=== PATIENT | male | born 2000 | race Caucasian/White ===

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

== ENCOUNTER 2023-11-08 13:39 | Emergency (ER) | payer MEDICAID ==
[2023-11-08 13:52] VITALS: TEMP 98.4
[2023-11-08 14:28] LABS: Absolute Neutrophil Ct (ANC) 7.96 x10^3/uL (1.4-6.9); BASOPHIL % 0.4 % (0.0-0.4); Basophil (Absolute #) 0.04 x10^3/uL (0-0.4); Eosinophil % 1.1 % (0.00-5.0); Eosinophil (Absolute #) 0.11 x10^3/uL (0-0.5); Hematocrit 46.3 % (42-50); Hemoglobin 15.7 g/dL (12.5-18.0); IMMATURE GRAN # 0.04 x10^3u/L (0.00-0.03); IMMATURE GRAN % 0.4 % (0.00-0.4); Lymphocyte (Absolute #) 1.54 x10^3/uL (1.0-4.6); Lymphocytes % 14.8 % (24.0-44.0); Mean Cell Volume 81.4 fL (78-100); Mean Corpuscular Hemoglobin 27.6 pg (26-32); Mean Corpuscular Hgb Concent. 33.9 g/dL (32-36); Mean Platelet Volume 8.7 fL (7.5-11.0); Monocyte (Absolute #) 0.73 x10^3/uL (0.0-1.3); Neutrophil % 76.3 % (36.0-66.0); Platelet Count 308 x10^3/uL (150-450); Red Blood Count 5.69 x10^6/uL (4.1-5.6); Red Cell Distribution Width 12.8 % (11.5-14.0); White Blood Count 10.4 x10^3/uL (4.0-10.5)
[2023-11-08 14:40] LABS: ALBUMIN 4.3 g/dL (3.5-5.0); ANION GAP 13.3 MEQ/L (5-15); BILIRUBIN,TOTAL 1.8 mg/dL (0.2-1.3); Calcium 9.2 mg/dL (8.4-10.2); Creatinine 1 0.9 mg/dL (0.66-1.25); EST GLOMERULAR FILTRATION RATE 124.6 ML/MIN; Potassium 3.4 mmol/L (3.5-5.1); Total Protein 7.5 g/dL (6.3-8.2)
[2023-11-08 14:42] LABS: INR 0.97 (0.8-3.0); PROTIME 10.6 SECONDS (9.4-12.5); PTT 26.6 SECONDS (25.1-36.5)
--- NOTE | 2023-11-08 15:01 | ERPHSYRPT ---
- History of Present Illness Time Seen by Provider: 11/08/23 13:55 Source: patient Exam Limitations: no limitations Patient Subjective Stated Complaint: pt sent here from Dr. Rodriguez office for DVT to right lower leg. After US pt co sob,tingling after finding out he had a DVT. pt OCL was taken off in office. pt co to nurse was lower right leg pain and tenderness. deneis cough or fever. Triage Nursing Assessment: pt alert, arrived per wc, resp easy, no cough, skin w/d/p. non wieght bearing to right leg. edema not lower right leg. no bruising. Physician History: 23-year-old morbidly obese male with a recent right ankle fracture was placed in a splint, was seen at podiatry office and was complaining of increasing pain in the calf area, has ultrasound done which showed occlusive posterior tibial DVT. As soon as patient finds out the results he started to have panicking with tingling in the fingertips, feeling palpitations and shortness of breath. Patient is sent in ER for further evaluation. He denies any difficulty breathing, chest pain or palpitation currently. No numbness in the fingers. No bluish discoloration of the toes. Has painful movements at the ankle. No history of PE or DVT in the past. Denies any contraindications to anticoagulation. Allergies/Adverse Reactions: No Known Drug Allergies Allergy (Verified 11/08/23 13:49) Home Medications: Hydrocodone/Acetaminophen [Hydrocodone-Acetamin 5-325 mg] 1 ea .ROUTE QID 11/08/23 [History] Hx Tetanus, Diphtheria Vaccination/Date Given: No Hx Influenza Vaccination/Date Given: No Hx Pneumococcal Vaccination/Date Given: No Immunizations Up to Date: Yes Travel Risk - International Travel Have you traveled outside of the country in past 3 weeks: No - Emerging Infectious Disease Are you exhibiting symptoms associated with any current EIDs: No - Review of Systems Constitutional: No Symptoms Eyes: No Symptoms Ears, Nose, & Throat: No Symptoms Respiratory: No Symptoms Cardiac: No Symptoms Abdominal/Gastrointestinal: No Symptoms Genitourinary Symptoms: No Symptoms Musculoskeletal: Injury Skin: No Symptoms Neurological: No Symptoms Psychological: Anxiety Endocrine: No Symptoms Hematologic/Lymphatic: No Symptoms - Past Medical History Pertinent Past Medical History: No Neurological History: No Pertinent History ENT History: No Pertinent History Cardiac History: No Pertinent History Respiratory History: No Pertinent History Endocrine Medical History: No Pertinent History Musculoskeletal History: No Pertinent History GI Medical History: No Pertinent History History: No Pertinent History Psycho-Social History: Depression Male Reproductive Disorders: No Pertinent History - Past Surgical History Past Surgical History: Yes Neuro Surgical History: No Pertinent History Cardiac: No Pertinent History Respiratory: No Pertinent History Gastrointestinal: No Pertinent History Genitourinary: No Pertinent History Musculoskeletal: No Pertinent History Male Surgical History: No Pertinent History Other Surgical History: repair of laceration - Social History Smoking Status: Current every day smoker Exposure to second hand smoke: Yes Drug Use: none Patient Lives Alone: No - Nursing Vital Signs Nursing Vital Signs: Initial Vital Signs Temperature 98.4 F 11/08/23 13:52 Pulse Rate 62 11/08/23 13:52 Respiratory Rate 18 11/08/23 13:52 Blood Pressure 158/117 11/08/23 13:52 O2 Sat by Pulse Oximetry 98 11/08/23 13:52 Pain Scale Pain Intensity 2 - Physical Exam General Appearance: no apparent distress, alert Eye Exam: PERRL/EOMI Ears, Nose, Throat Exam: normal ENT inspection Neck Exam: normal inspection, non-tender, supple, full range of motion Respiratory Exam: normal breath sounds, lungs clear Cardiovascular Exam: regular rate/rhythm, normal heart sounds Gastrointestinal/Abdomen Exam: soft Extremity Exam: other (Tenderness right lateral ankle with some swelling around. Positive calf tenderness on the right. Distal neurovascular well intact. Soft compartments.) Neurologic Exam: alert, oriented x 3, cooperative Skin Exam: normal color SpO2 Interpretation: normal SpO2: 98 O2 Delivery: Room Air Ordered Tests: Active Orders 24 hr Category Date Time Status CHEST WITH CONTRAST [CT] Stat Exams 11/08/23 15:07 Completed CBC W DIFF Stat Lab 11/08/23 14:27 Completed CMP Stat Lab 11/08/23 14:27 Completed PROTIME WITH INR Stat Lab 11/08/23 14:27 Completed PTT Stat Lab 11/08/23 14:27 Completed TROPONIN Q4H Lab 11/08/23 15:15 Ordered TROPONIN Q4H Lab 11/08/23 19:15 Ordered TROPONIN Q4H Lab 11/08/23 23:15 Ordered Medication Summary Discontinued Medications Generic Name Dose Route Start Last Admin Trade Name Freq PRN Reason Stop Dose Admin Apixaban 10 mg 11/08/23 16:52 11/08/23 17:13 Apixaban 2.5 Mg Tablet PO 11/08/23 16:53 10 mg ONCE STA Administration Morphine Sulfate 4 mg 11/08/23 15:20 11/08/23 15:26 Morphine Sulfate 4 Mg/Ml Injection IV 11/08/23 15:21 4 mg STAT ONE Administration Morphine Sulfate Confirm 11/08/23 15:23 Morphine Sulfate 4 Mg/Ml Injection Administered 11/08/23 15:24 Dose 4 mg .ROUTE .STK-MED ONE Ondansetron HCl 4 mg 11/08/23 15:20 11/08/23 15:26 Ondansetron Hcl 4 Mg/2 Ml Vial IV 11/08/23 15:21 4 mg STAT ONE Administration Ondansetron HCl Confirm 11/08/23 15:22 Ondansetron Hcl 4 Mg/2 Ml Vial Administered 11/08/23 15:23 Dose 4 mg .ROUTE .STK-MED ONE Lab/Rad Data: Laboratory Result Diagrams 11/08/23 14:27 11/08/23 14:27 Laboratory Results 11/08/23 11/08/23 11/08/23 Range/Units 14:27 14:27 14:27 WBC 10.4 (4.0-10.5) x10^3/uL RBC 5.69 H (4.1-5.6) x10^6/uL Hgb 15.7 (12.5-18.0) g/dL Hct 46.3 (42-50) % MCV 81.4 (78-100) fL MCH 27.6 (26-32) pg MCHC 33.9 (32-36) g/dL RDW 12.8 (11.5-14.0) % Plt Count 308 (150-450) x10^3/uL MPV 8.7 (7.5-11.0) fL Gran % 76.3 H (36.0-66.0) % Immature Gran % (Auto) 0.4 (0.00-0.4) % Nucleat RBC Rel Count 0.0 (0.00-0.1) % Eos # (Auto) 0.11 (0-0.5) x10^3/uL Immature Gran # (Auto) 0.04 H (0.00-0.03) x10^3u/L Absolute Lymphs (auto) 1.54 (1.0-4.6) x10^3/uL Absolute Monos (auto) 0.73 (0.0-1.3) x10^3/uL Absolute Nucleated RBC 0.00 (0.00-0.01) x10^3u/L Lymphocytes % 14.8 L (24.0-44.0) % Monocytes % 7.0 (0.0-12.0) % Eosinophils % 1.1 (0.00-5.0) % Basophils % 0.4 (0.0-0.4) % Absolute Granulocytes 7.96 H (1.4-6.9) x10^3/uL Basophils # 0.04 (0-0.4) x10^3/uL PT 10.6 (9.4-12.5) SECONDS INR 0.97 (0.8-3.0) APTT 26.6 (25.1-36.5) SECONDS Sodium 139 (135-145) mmol/L Potassium 3.4 L (3.5-5.1) mmol/L Chloride 105 (98-107) mmol/L Carbon Dioxide 25 (22-30) mmol/L Anion Gap 13.3 (5-15) MEQ/L BUN 7 L (9-20) mg/dL Creatinine 0.90 (0.66-1.25) mg/dL Estimated GFR 124.6 ML/MIN Glucose 103 (74-106) mg/dL Calcium 9.2 (8.4-10.2) mg/dL Total Bilirubin 1.80 H (0.2-1.3) mg/dL AST 26 (17-59) U/L ALT 35 (0-50) U/L Alkaline Phosphatase 66 (38-126) U/L Serum Total Protein 7.5 (6.3-8.2) g/dL Albumin 4.3 (3.5-5.0) g/dL - Progress Progress: improved Progress Note: 11/08/23 17:03 23-year-old is evaluated in the ER for symptoms of increasing pain in the right calf with a positive DVT scan. Patient was anxious immediately afterwards. During my evaluation is back to normal. No difficulty breathing. No palpitations. Room air oxygen in upper 90s. No tachypnea or tachycardia. Baseline workup is fairly unremarkable with normal white count and hemoglobin, fairly unremarkable chemistries. Negative troponin. Negative CTA chest for PE or any other acute findings. EKG is normal sinus with no acute ischemic changes. I would start him on Eliquis and have him outpatient follow-up with his primary care with referral to hematology oncology. Podiatry has seen patient in the ER and has resplinted. Counseled pt/family regarding: lab results, diagnosis, need for follow-up, rad results Medical Desision Making - Discussion of managment Care discussed with:: specialist (Podiatry Dr. Alejo) Reviewed:: Test results Agreed on:: Treatment plan Will see patient: In office - Diagnostic Testing Diagnostic test were ordered, analyzed, and reviewed by me: Yes Radiological Interpretation: Reviewed by me - Risk of complications The pt has a mod risk of morbidity or mortality based on: Need for prescription drug management - Departure Departure Disposition: Home Clinical Impression: DVT (deep venous thrombosis) Condition: Stable Critical Care Time: No Referrals: FARRAH IZAGUIRRE MD [Primary Care Provider] - Follow up with PCP 1 day Instructions: Deep Vein Thrombosis (Blood Clots in the Legs) (DC) Additional Instructions: Take pain medications as needed. Continue with Eliquis 10 mg twice a day for 7 days and then 5 mg twice a day from 8-day onward. Follow-up with primary care and hematology for reevaluation and further workup to find out the cause of blood clot in your leg. Return to ER for chest pain palpitations, shortness of breath, increasing pain or swelling in the leg etc.APt November 12 at 1pm with Prescriptions: Apixaban [Eliquis] 5 mg PO BID 30 Days #74 tab
[2023-11-08] MEDS ORDERED: Zofran 4 MG/2 ML VIAL ONE (15:22)
[2023-11-08] MEDS ORDERED: MORPHINE SULFATE 4 MG INJ ONE (15:23)
[2023-11-08] MEDS: Zofran 4 MG/2 ML VIAL IV ONE (15:26)
[2023-11-08] MEDS: MORPHINE SULFATE 4 MG INJ IV ONE (15:26)
--- NOTE | 2023-11-08 16:30 | XRAY ---
Indication: Short of breath. DVT. Multiple contiguous axial images obtained through the chest using 80 cc Isovue 370 contrast and PE protocol. Comparison: None Good opacification pulmonary arteries to include lobar and segmental branches. No pulmonary embolus. Heart not enlarged. Aorta normal in course and caliber. Small and large subcarinal and right hilar calcified nodes. No pathologic mediastinal/hilar lymphadenopathy. Lungs inflated with 2 small peripheral right lower lobe calcified granulomas. No suspicious pulmonary mass/nodule, infiltrate, or effusion. Bony thorax intact. Limited upper abdomen unremarkable. Impression: Negative pulmonary embolus. No acute cardiopulmonary abnormalities. Incidental old granulomatous disease.
[2023-11-08 16:58] VITALS: O2SAT 98
[2023-11-08] MEDS: ELIQUIS 2.5 MG TABLET PO STA (17:13)
[2023-11-08 17:33] VITALS: BP 132/82; PULSE 60; RESP 14
== END 2023-11-08 17:33 | disposition home or self-care (01) ==
LOC: ED 13:39
DX: I82.401 Acute embolism and thrombosis of unspecified deep veins of right lower extremity (principal); R06.02 Shortness of breath; F17.200 Nicotine dependence, unspecified, uncomplicated; F41.9 Anxiety disorder, unspecified
CPT/HCPCS: 36415; 71260; 80053; 84484; 85025; 85610; 85730; 96374; 96375; 99284; J2270; J2405; A9270-GY

== ENCOUNTER 2023-11-15 11:00 | Day surgery (SDC) | payer MEDICAID ==
[2023-11-15] MEDS ORDERED: Pepcid 20 MG VIAL IV ONE ×2 (11:19→11:23)
[2023-11-15] MEDS ORDERED: Decadron 4 MG ONE (11:23)
[2023-11-15] MEDS ORDERED: Transderm Scop 1.5MG Patch ONE (11:23)
[2023-11-15] MEDS ORDERED: TYLENOL EXTRA STRENGTH 500 MG ONE (11:23)
[2023-11-15] MEDS ORDERED: NEURONTIN ONE (11:24)
[2023-11-15] MEDS ORDERED: Lactated Ringers 1,000 ML IV ONE (11:24)
[2023-11-15] MEDS: Lactated Ringers 1,000 ML IV SCH (11:26)
[2023-11-15] MEDS: Decadron 4 MG PO ONE (11:26)
[2023-11-15] MEDS: NEURONTIN PO ONE (11:27)
[2023-11-15] MEDS: TYLENOL EXTRA STRENGTH 500 MG PO ONE (11:27)
[2023-11-15] MEDS: Transderm Scop 1.5MG Patch TOP PRN (11:27)
[2023-11-15] MEDS: Pepcid 20 MG VIAL IV ONE (11:32)
[2023-11-15 11:45] LABS: Hematocrit 45.9 % (42-50); Hemoglobin 15.6 g/dL (12.5-18.0); Mean Cell Volume 81.1 fL (78-100); Mean Corpuscular Hemoglobin 27.6 pg (26-32); Mean Platelet Volume 8.3 fL (7.5-11.0); Platelet Count 337 x10^3/uL (150-450); Red Blood Count 5.66 x10^6/uL (4.1-5.6); Red Cell Distribution Width 12.9 % (11.5-14.0); White Blood Count 7.4 x10^3/uL (4.0-10.5)
[2023-11-15 12:00] LABS: ALBUMIN 4.4 g/dL (3.5-5.0); ANION GAP 12.5 MEQ/L (5-15); BILIRUBIN,TOTAL 1.5 mg/dL (0.2-1.3); Calcium 9.3 mg/dL (8.4-10.2); Creatinine 1 0.8 mg/dL (0.66-1.25); EST GLOMERULAR FILTRATION RATE 129.1 ML/MIN; Potassium 4.1 mmol/L (3.5-5.1); Total Protein 7.7 g/dL (6.3-8.2)
[2023-11-15] MEDS: KEFZOL 1 GM** 3 G in Sodium Chloride 0.9% 50 ML 50 ML IV SCH (12:00)
[2023-11-15 12:03] LABS: INR 0.96 (0.8-3.0); PROTIME 10.5 SECONDS (9.4-12.5); PTT 29.4 SECONDS (25.1-36.5)
[2023-11-15] MEDS ORDERED: Xylocaine-Mpf 2% 5 Ml Vial ONE (12:15)
[2023-11-15] MEDS ORDERED: Versed 2 MG/2 ML Injection ONE (12:15)
[2023-11-15] MEDS ORDERED: ROCURONIUM BROMIDE IV ONE ×2 (12:15→13:27)
[2023-11-15] MEDS ORDERED: SUBLIMAZE 100 MCG/2 ML ONE ×2 (12:15→15:29)
[2023-11-15] MEDS ORDERED: DIPRIVAN 200 MG/20 ML IV ONE (12:17)
[2023-11-15] MEDS ORDERED: Marcaine 0.5%/Epinephrine 10 ML ONE (12:21)
[2023-11-15] MEDS ORDERED: Naropin 0.5% 30 ML VIAL ONE (12:21)
[2023-11-15] MEDS ORDERED: BRIDION 200MG/2ML IV ONE (14:40)
--- NOTE | 2023-11-15 15:04 | XRAY ---
Indication: Right ankle ORIF. Intraoperative fluoroscopy provided for 3 minutes 12 seconds. Numerous digital images submitted for interpretation ultimately demonstrates lateral fixation plate and multiple transverse screws fixating lateral malleolus fracture in good apposition/alignment. Correlate with intraoperative findings/report.
[2023-11-15] MEDS ORDERED: Ketamine HCl 50 MG/ML ONE (15:56)
[2023-11-15 16:26] VITALS: RESP 16; TEMP 97.1
[2023-11-15 16:37] VITALS: BP 132/87; PULSE 70; O2SAT 96
--- NOTE | 2023-11-16 08:30 | OP ---
SURGERY DATE/TIME: 11/15/2023 1331 PREOPERATIVE DIAGNOSES: 1) Right fibular fracture. 2) Syndesmotic disruption. 3) Right ankle pain. 4) Deep venous thrombosis posterior tibial vein. POSTOPERATIVE DIAGNOSES: 1) Right fibular fracture. 2) Syndesmotic disruption. 3) Right ankle pain. 4) Deep venous thrombosis posterior tibial vein. PROCEDURE: Open reduction internal fixation of fibular fracture with syndesmotic reduction. SURGEON: Michael Cyr DPM. ON SITE COORDINATOR: None. ANESTHESIA: General plus a preoperative popliteal and saphenous block. HEMOSTASIS: Pressure dressing. QUANTITATIVE BLOOD LOSS: Approximately 20 cc. MATERIALS: [employer] anatomic locking plate with a 3.5 x 65 mm and 60 mm cortical screw for syndesmosis, 4-0 Monocryl, 2-0 Monocryl, 3-0 Nylon. INJECTABLES: See anesthesia report for details. INDICATION FOR PROCEDURE: Billy is a very pleasant 23-year-old male who presented to my service six days after he had fractured his right ankle in a fall. The patient had significant pain as a result of the fracture but did also have pain at the medial aspect of his ankle and radiating up his leg. He was immobilized in a posterior splint. The patient's symptoms were suspicious from that standpoint and a venous ultrasound was obtained demonstrating a deep venous thrombosis within the posterior tibial vein. The patient on return of the ultrasound was feeling some symptoms of lightheadedness, chest pain and tingling within his fingers which prompted an urgent referral to the emergency department where was cleared of a pulmonary embolism. The patient did return shortly thereafter and stress testing was taken of the ankle demonstrating some medial clear space widening. With this being said, we decided to proceed with surgical intervention given the high potential for instability of the fracture. As a result, the patient was made aware of all risks, complications and benefits of surgical intervention at this time including but not limited to infection, hematoma, seroma, possibility of delayed wound healing, nonwound healing and possible need for further surgical intervention at a later date. No guarantees were provided as to the outcome of surgical intervention. It is at this time we decided to proceed. Time was allowed for the patient and his significant other to ask questions which were answered to their apparent satisfaction. It is at this time we decided to proceed. DESCRIPTION OF PROCEDURE: The patient was brought into the postoperative anesthesia care unit prior to the procedure and provided a popliteal and saphenous block. Following this, the patient was brought to the operative suite and transferred to the operative table in the supine position. At this time general anesthesia was administered until the patient was adequately sedated. The right lower extremity was prepped and draped in the typical sterile fashion and lowered onto the surgical field. At this time attention was directed under fluoroscopic guidance to the right lateral leg to the fibula where a [place] was utilized to identify the posterior border and a perfect view lateral. Skin marker was utilized to plan out incision sites this was carried out making a linear incision down to the level of bone over the posterior fibular border. From this standpoint, incision was carried down until the fracture was identified making sure not to damage any neurovascular structures. From this area, copious amounts of sterile saline were utilized to flush the fracture site. Dental pick was utilized to remove any hematoma from within the fracture site. A [id number] forceps was utilized to hold the fracture in a reduced position. Following this, an anatomic six-hole plate from [employer] was introduced to the posterior lateral aspect of the fibula. Position was identified to be adequate and distal locking and nonlocking screws were anchored. A cortical screw was placed proximally to set the plate down and a series of nonlocking screws were introduced gaining bicortical fixation. From this standpoint, fibular fracture was reduced. Decision was made to proceed with stress testing where syndesmosis did appear to be gapping with hook test and external rotation test. From that standpoint, syndesmotic screws were introduced. Distally a 65 x 3.5 mm screw was introduced and orientation posterior lateral to anterior medial gaining excellent compression of the syndesmosis. A second syndesmotic screw was done in a very similar if not parallel orientation measuring 60 mm in length. Stress testing was once again performed for the medial deltoid ligaments which were seemingly intact. From that standpoint, final views were taken on radiography. Copious amounts of sterile saline were utilized to cleanse the leg and the surgical site. 4-0 Monocryl and 2-0 Monocryl were utilized to coapt the subcutaneous skin edges in a simple interrupted buried-type fashion. 3-0 Nylon was utilized in a horizontal mattress-type fashion. Following this, a dressing consisting of Betadine, Adaptic, 4x4, Kerlix, ABD and a well-padded posterior splint with Sugar-Tong was applied to the patients right lower extremity with the foot orthogonal relative to longitudinal aspect of the leg. The patient was then reversed from anesthesia and returned to the postoperative anesthesia care unit with vital signs stable and vascular status intact. The patient handled the anesthesia as well as the procedure without significant complication. Postoperative orders as indicated in the patient's discharge chart.
--- NOTE | 2023-11-16 08:53 | XRAY ---
Three minutes and 12 seconds of fluoroscopy was used in surgery for a right ankle ORIF.
== END 2023-11-15 16:45 | disposition home or self-care (01) ==
LOC: SDC 11:00
PROVIDERS: ATTEND Podiatrist Foot & Ankle Surgery
DX: S82.401A Unspecified fracture of shaft of right fibula, initial encounter for closed fracture (principal); S93.431A Sprain of tibiofibular ligament of right ankle, initial encounter; M25.571 Pain in right ankle and joints of right foot; I82.441 Acute embolism and thrombosis of right tibial vein
CPT/HCPCS: 27792; 27829; 36415; 64447; 64450; 73610; 76000; 76942; 80053; 85027; 85610; 85730; C1713; J0690; J2250; J2704; J2795; J3010; A9270-GY